=== PATIENT | male | born 1955 | race American Indian/Alaskan Native ===

== ENCOUNTER 2017-09-06 13:24 | Emergency (ER) | payer BC ==
[2017-09-06 13:44] VITALS: BP 131/83; PULSE 58; RESP 18; TEMP 98.7; O2SAT 96
--- NOTE | 2017-09-06 15:00 | ED PDOC ---
Lower Extremity Pain/Injury Time Seen by Provider: 09/06/17 13:48 Chief Complaint (Nursing): Lower Extremity Problem/Injury Chief Complaint (Provider): Lower Extremity Problem/Injury History Per: Patient History/Exam Limitations: no limitations Onset/Duration Of Symptoms: Days (x2) Current Symptoms Are (Timing): Still Present Additional Complaint(s): 62 year old male arrives to ED with a complaint of left knee pain status twisting knee as he slipped on the stairs yesterday. He reports pain was initially minimal but progressively worsen today. Patient also sustained a small wound to his right forearm. He denies any numbness, tingling, head or other bodily injuries. PMD: Dr. Mary Kay Saldana Past Medical History Reviewed: Historical Data, Nursing Documentation, Vital Signs Vital Signs: Last Vital Signs Temp 98.7 F 09/06/17 13:41 Pulse 58 L 09/06/17 13:41 Resp 18 09/06/17 13:41 BP 131/83 09/06/17 13:41 Pulse Ox 96 09/06/17 13:41 - Medical History PMH: No Chronic Diseases - Surgical History Surgical History: No Surg Hx - Family History Family History: States: Unknown Family Hx - Allergies Allergies/Adverse Reactions: Allergies Allergy/AdvReac Type Severity Reaction Status Date / Time No Known Allergies Allergy Verified 09/06/17 13:44 Review of Systems ROS Statement: Except As Marked, All Systems Reviewed And Found Negative Musculoskeletal: Positive for: Leg Pain (left knee), Other (small right forearm wound) Neurological: Negative for: Numbness (or tingling sensation), Other (head injury ) Physical Exam - Reviewed Nursing Documentation Reviewed: Yes Vital Signs Reviewed: Yes - Physical Exam Appears: Positive for: Non-toxic, No Acute Distress Head Exam: Positive for: ATRAUMATIC, NORMAL INSPECTION, NORMOCEPHALIC Pulses-Dorsalis Pedis (L): 2+ Extremity: Positive for: Normal ROM (actively to left knee and right elbow/wrist ), Swelling (mildly to left medial surface of left knee), Other (left volar proximal forearm superficial abrasion). Negative for: Tenderness (or edema to right forearm), Deformity (or valgus-varus laxity to left knee) - ECG O2 Sat by Pulse Oximetry: 96 (RA) Pulse Ox Interpretation: Normal Medical Decision Making Medical Decision Making: Initial Impression: Knee injury Initial Plan: * Xray knee (left) Time: 1506 --Xray knee (left) FINDINGS: BONES: Normal. No fracture. JOINTS: Normal. No osteoarthritis. JOINT EFFUSION: None. OTHER FINDINGS: None. IMPRESSION: Normal radiographs of the left knee. Time: 1537 --Upon provider re-evaluation, patient is medically stable and requires no further treatment in the ED at this time. Patient will be discharged home. Counseling was provided and all questions were answered regarding diagnosis and need for follow up with vendor management specialist. There is agreement to discharge plan. Return if symptoms persist or worsen. Clinical Impression: Knee injury Scribe Attestation: Documented by Brit Quiroz, acting as a scribe for Rufus Han PA-C. Provider Scribe Attestation: All medical record entries made by the Scribe were at my direction and personally dictated by me. I have reviewed the chart and agree that the record accurately reflects my personal performance of the history, physical exam, medical decision making, and the department course for this patient. I have also personally directed, reviewed, and agree with the discharge instructions and disposition. Disposition - Clinical Impression Clinical Impression: Knee injury - Patient ED Disposition Is Patient to be Admitted: No Counseled Patient/Family Regarding: Studies Performed, Diagnosis, Need For Followup - Disposition [facility]errals: [facility] [Outside] Mary Pringle MD [Staff Provider] - Disposition: Routine/Home Disposition Time: 15:37 Condition: STABLE Additional Instructions: BENJI BAUMANN, thank you for letting us take care of you today. Your provider was Candis Colon MD and you were treated for LT KNEE PAIN. The emergency medical care you received today was directed at your acute symptoms. If you were prescribed any medication, please fill it and take as directed. It may take several days for your symptoms to resolve. Return to the Emergency Department if your symptoms worsen, do not improve, or if you have any other problems. Please contact your doctor or call one of the physicians/clinics you have been referred to that are listed on the Patient Visit Information form that is included in your discharge packet. Bring any paperwork you were given at discharge with you along with any medications you are taking to your follow up visit. Our treatment cannot replace ongoing medical care by a primary care provider outside of the emergency department. Thank you for allowing the [facility] team to be part of your care today. If you had an X-Ray or CT scan: A Radiologist will review the ED reading if any change in treatment is needed we will contact you. If you had a blood, urine, or wound culture: It will take several days for the results, if any change in treatment is needed we will contact you. If you had an STI test: It will take 48 hours for the results. Please call after 1 week if you have not heard back. Instructions: How to Use Crutches, Knee Sprain (DC) Forms: [employer] (Malaysian), [facility] ED School/Work Excuse Print Language: SWEDISH
--- NOTE | 2017-09-06 15:08 | RAD ---
Date of service: 09/06/2017 PROCEDURE: Left Knee Radiographs. HISTORY: Posttraumatic pain. COMPARISON: None. FINDINGS: BONES: Normal. No fracture. JOINTS: Normal. No osteoarthritis. JOINT EFFUSION: None. OTHER FINDINGS: None. IMPRESSION: Normal radiographs of the left knee.
== END 2017-09-06 15:50 | disposition home or self-care (01) ==
LOC: H.ER 13:24
DX: S89.92XA Unspecified injury of left lower leg, initial encounter (principal); X50.9XXA Other and unspecified overexertion or strenuous movements or postures, initial encounter; Y92.89 Other specified places as the place of occurrence of the external cause